=== PATIENT | male | born 1995 | race Caucasian/White ===

== ENCOUNTER 2021-04-25 10:55 | Emergency (ER) | payer OTHER ==
--- NOTE | 2021-04-25 12:15 | EDM.PDOC ---
ED HPI GENERAL MEDICAL PROBLEM - General Chief Complaint: Laceration Stated Complaint: CUT HAND Time Seen by Provider: 04/25/21 11:02 Source of Information: Reports: Patient History Limitations: Reports: No Limitations - History of Present Illness INITIAL COMMENTS - FREE TEXT/NARRATIVE: HISTORY AND PHYSICAL: History of present illness: Patient is a 25-year-old male resents emergency room today with concern of right hand laceration that occurred just prior to arrival to the emergency room. 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 Patient states that he is up-to-date on his tetanus vaccine within 5 years. Patient states he is fully able to move the hand without difficulty. Patient denies any other symptoms or concerns. Patient denies fever, chills, chest pain, shortness of breath, or cough. Denies headache, neck stiff ness, change in vision, syncope, or near syncope. Denies nausea, vomiting, abdominal pain, diarrhea, constipation, or dysuria. Has not noted any blood in urine or stool. Patient has been eating and drinking appropriately. Review of systems: As per history of present illness and below otherwise all systems reviewed and negative. Past medical history: As per history of present illness and as reviewed below otherwise noncontributory. Surgical history: As per history of present illness and as reviewed below otherwise noncontributory. Social history: See social history for further information Family history: As per history of present illness and as reviewed below otherwise noncont ributory. Physical exam: General: Patient is alert, oriented, and in no acute distress. Patient sitting comfortably on exam table. Vitals stable and reviewed by me. HEENT: Atraumatic, normocephalic, pupils equal and reactive bilaterally, negative for conjunctival pallor or scleral icterus, mucous membranes moist, TMs normal bilaterally, throat clear, neck supple, nontender, trachea midline. No d rooling or trismus noted. No meningeal signs. No hot potato voice noted. Lungs: Clear to auscultation, breath sounds equal bilaterally, chest nontender. Heart: S1S2, regular rate and rhythm without overt murmur Abdomen: Soft, nondistended, nontender. Negative for masses or hepatosplenomegaly. Negative for costovertebral tenderness. Pelvis: Stable nontender. Genitourinary: Deferred. Rectal: Deferred. Skin: Intact, warm, dry. No lesions or rashes noted. Extremities: There is a 2 cm gaping laceration of the right hand lateral palmar aspect with hemostasis. Patient has full range of motion of the complete right upper extremity and all digits without deficit. Radial pulses grossly intact with capillary refill less than 2 seconds. Otherwise, atraumatic, negative for cords or calf pain. Neurovascular unremarkable. Neuro: Awake, alert, oriented. Cranial nerves II through XII unremarkable. Cerebellum unremarkable. Motor and sensory unremarkable throughout. Exam nonfocal. Notes: Signs and symptoms that would prompt return to the ED thoroughly discussed with patient. Discussed importance of follow-up with primary care provider. Voices understanding and is agreeable to plan of care. Denies any further questions or concerns at this time. Diagnostics: hand x-ray was offered for underlying fracture or foreign body, however, patient declines. All risk versus benefits discussed with patient expresses understanding. Therapeutics: Lidocaine, sutures Prescription: None Impression: Hand laceration, right Plan: 1. Keep the area clean and dry. Continue to monitor for signs of infection as discussed. Sutures to be removed in 7-10 days. 2. Tylenol and/or ibuprofen as directed and as needed for pain management and discomfort. 3. Please follow-up with your primary care provider as discussed. Return to the ED as needed and as discussed. Definitive disposition and diagnosis as appropriate pending reevaluation and review of above. Hand Pain Score (Numeric/FACES): 7 - Related Data Allergies Allergy/AdvReac Type Severity Reaction Status Date / Time No Known Allergies Allergy Verified 04/25/21 11:16 Home Meds: Home Meds . [No Known Home Meds] 04/25/21 [History] Social & Family History - Tobacco Use Second Hand Smoke Exposure: No - Caffeine Use Caffeine Use: Reports: None - Recreational Drug Use Recreational Drug Use: No ED ROS GENERAL - Review of Systems Review Of Systems: Comprehensive ROS is negative, except as noted in HPI. ED EXAM, SKIN/RASH Exam: See Below (see dictation) ED SKIN PROCEDURES - Laceration/Wound Repair Right Lateral Hand Appearance: Subcutaneous, Linear, Mildly Contaminated Distal NVT: Neuro & Vascular Intact, No Tendon Injury Anesthetic Type: Local Local Anesthesia - Lidocaine (Xylocaine): 1% Plain Local Anesthetic Volume: 4cc Skin Prep: Chlorhexidine (Hibiciens), Saline Saline Irrigation (cc's): 250 Exploration/Debridement/Repair: Wound Explored, In a Bloodless Field, Explored to Base, No Foreign Material Found Closed with: Sutures Lac/Wound length In cm: 2 Suture Size: 4-0 # of Sutures: 3 Suture Type: Silk, Interrupted Drain Placement: No Sterile Dressing Applied: Nurse Tetanus Status Addressed: Yes (Up-to-date) Complications: No Course - Vital Signs Last Recorded V/S: Last Vital Signs Temp 97.1 F 04/25/21 11:13 Pulse 64 04/25/21 11:13 Resp 20 04/25/21 11:13 BP 140/70 04/25/21 11:13 Pulse Ox 64 L 04/25/21 11:13 - Orders/Labs/Meds Meds: Medications Discontinued Medications Generic Name Dose Route Start Last Admin Trade Name Monroe PRN Reason Stop Dose Admin Lidocaine HCl 5 ml 04/25/21 11:27 04/25/21 11:37 Lidocaine 1% 5 Ml Sdv INJECT 04/25/21 11:28 5 ml ONETIME ONE Administration Departure - Departure Time of Disposition: 12:14 Disposition: Home, Self-Care 01 Clinical Impression: Hand laceration Qualifiers: Encounter type: initial encounter Foreign body presence: without foreign body Laterality: right Qualified Code(s): S61.411A - Laceration without foreign body of right hand, initial encounter - Discharge Information Referrals: PCP,None [Primary Care Provider] - Forms: ED Department Discharge Additional Instructions: The following information is given to patients seen in the emergency department who are being discharged to home. This information is to outline your options for follow-up care. We provide all patients seen in our emergency department with a follow-up referral. The need for follow-up, as well as the timing and circumstances, are variable depending upon the specifics of your emergency department visit. If you don't have a primary care physician on staff, we will provide you with a referral. We always advise you to contact your personal physician following an emergency department visit to inform them of the circumstance of the visit and for follow-up with them and/or the need for any referrals to a consulting specialist. The emergency department will also refer you to a specialist when appropriate. This referral assures that you have the opportunity for follow-up care with a specialist. All of these measure are taken in an effort to provide you with optimal care, which includes your follow-up. Under all circumstances we always encourage you to contact your private physician who remains a resource for coordinating your care. When calling for follow-up care, please make the office aware that this follow-up is from your recent emergency room visit. If for any reason you are refused follow-up, please contact the [facility] Emergency Department at and asked to speak to the emergency department charge nurse. [facility] [address] [place] [id number] [facility] [address] [place] [id number] 1. Keep the area clean and dry. Continue to monitor for signs of infection as discussed. Sutures to be removed in 7-10 days. 2. Tylenol and/or ibuprofen as directed and as needed for pain management and discomfort. 3. Please follow-up with your primary care provider as discussed. Return to the ED as needed and as discussed. Sepsis Event Note (ED) - Evaluation Sepsis Screening Result: No Definite Risk - Focused Exam Vital Signs: Vital Signs Temp Pulse Resp BP Pulse Ox 04/25/21 11:13 97.1 F 64 20 140/70 64 L
== END 2021-04-25 12:30 | disposition home or self-care (01) ==
LOC: MW.ED 10:55
DX: S61.411A Laceration without foreign body of right hand, initial encounter (principal); W23.0XXA Caught, crushed, jammed, or pinched between moving objects, initial encounter; Y92.89 Other specified places as the place of occurrence of the external cause; Y99.0 Civilian activity done for income or pay
CPT/HCPCS: 12001; 99283-25

== ENCOUNTER 2021-04-30 21:38 | Emergency (ER) | payer OTHER ==
--- NOTE | 2021-05-01 00:32 | EDM.PDOC ---
ED HPI GENERAL MEDICAL PROBLEM - General Chief Complaint: Laceration Stated Complaint: HAND LACERATION Time Seen by Provider: 05/01/21 00:25 - History of Present Illness INITIAL COMMENTS - FREE TEXT/NARRATIVE: 25-year-old male presents complaining of a laceration to his right hand with some purulent material that came from the hand earlier today. Patient cut his hand close to a week ago and today noticed that it was a little bit swollen and some yellow discharge came from beneath the sutures. No fevers. No new trauma Right Finger-Index Pain Score (Numeric/FACES): 4 - Related Data Allergies Allergy/AdvReac Type Severity Reaction Status Date / Time No Known Allergies Allergy Verified 04/30/21 22:18 Home Meds: Home Meds cephALEXin [Keflex] 500 mg PO QID #40 cap 05/01/21 [Rx] Past Medical History - Past Health History Medical/Surgical History: Denies Medical/Surgical History Social & Family History - Family History Family Medical History: No Pertinent Family History - Tobacco Use Tobacco Use Status *Q: Current Every Day Tobacco User Years of Tobacco use: 15 Packs/Tins Daily: 1 - Caffeine Use Caffeine Use: Reports: None - Recreational Drug Use Recreational Drug Use: No ED ROS GENERAL - Review of Systems Review Of Systems: See Below Constitutional: Denies: Fever Musculoskeletal: Reports: Hand Pain Skin: Reports: Other (Discharge from the laceration site to the right hand) Neurological: Reports: No Symptoms ED EXAM, GENERAL - Physical Exam Exam: See Below Free Text/Narrative:: CONSTITUTIONAL: well appearing in no acute distress SKIN: Palmar surface of the right hand near the thumb metacarpal area has 3 sutures placed. There is maybe some very mild swelling but no overt erythema or warmth. There is no discharge it can be expressed when pushing on the laceration. There is no purulence is expressed at this time HENT: Normocephalic, atraumatic, NECK: normal range of motion PULMONARY: normal chest rise and fall, no respiratory distress or stridor NEUROLOGIC: normal speech, moves all extremities, grossly non-focal MUSCULOSKELETAL: no gross deformities, atraumatic PSYCHIATRIC: normal mood and affect Course - Vital Signs Text/Narrative:: Abscess, infection, other Patient presents as outlined above. There is no marked erythema or discharge or fluctuance at the moment. Nonetheless since the patient has some swelling and there is some tenderness for the patient with purulence antibiotics will be given. Patient advised to have the sutures removed and have splint placed for support. Patient states he cannot do that based on work and he will have them taken out in a couple of days. The risk versus benefit of doing this was discussed including remainder of foreign body and propensity for infection. Patient be sent home on Keflex with return precautions and suture to be removed as soon is able Last Recorded V/S: Last Vital Signs Temp 36.9 C 04/30/21 22:14 Pulse 66 04/30/21 23:58 Resp 18 04/30/21 23:58 BP 141/77 H 04/30/21 23:58 Pulse Ox 96 04/30/21 23:58 - Orders/Labs/Meds Meds: Medications Discontinued Medications Generic Name Dose Route Start Last Admin Trade Name Monroe PRN Reason Stop Dose Admin Cephalexin 500 mg 05/01/21 06:00 Cephalexin 500 Mg Cap PO QID JAYLA Cephalexin Confirm 05/01/21 00:40 05/01/21 00:51 Cephalexin 500 Mg Cap Administered 05/01/21 00:41 Not Given Dose 500 mg .ROUTE .STK-MED ONE Cephalexin 500 mg 05/01/21 00:47 05/01/21 00:51 Cephalexin 500 Mg Cap PO 05/01/21 00:48 500 mg ONETIME ONE Administration Departure - Departure Time of Disposition: 23:00 Disposition: Home, Self-Care 01 Condition: Good Clinical Impression: Cellulitis of hand - Discharge Information Prescriptions: cephALEXin [Keflex] 500 mg PO QID #40 cap Referrals: PCP,None [Primary Care Provider] - Forms: ED Department Discharge Additional Instructions: Return for fevers, increased redness or discharge or pain to the hand. Please have sutures removed the symptoms you are able to. Return in 2 days for reevaluation The following information is given to patients seen in the emergency department who are being discharged to home. This information is to outline your options for follow-up care. We provide all patients seen in our emergency department with a follow-up referral. The need for follow-up, as well as the timing and circumstances, are variable depending upon the specifics of your emergency department visit. If you don't have a primary care physician on staff, we will provide you with a referral. We always advise you to contact your personal physician following an emergency department visit to inform them of the circumstance of the visit and for follow-up with them and/or the need for any referrals to a consulting specialist. The emergency department will also refer you to a specialist when appropriate. This referral assures that you have the opportunity for follow-up care with a specialist. All of these measure are taken in an effort to provide you with optimal care, which includes your follow-up. Primary care clinics in the area: [facility] - Primary Care [address] [place] [address] [place] [address] Under all circumstances we always encourage you to contact your private physician who remains a resource for coordinating your care. When calling for follow-up care, please make the office aware that this follow-up is from your recent emergency room visit. If for any reason you are refused follow-up, please contact the [facility] Emergency Department at and asked to speak to the emergency department charge nurse. Sepsis Event Note (ED) - Evaluation Sepsis Screening Result: No Definite Risk - Focused Exam Vital Signs: Vital Signs Temp Pulse Resp BP Pulse Ox 04/30/21 23:58 66 18 141/77 H 96 04/30/21 22:14 36.9 C 76 18 127/78 98
[2021-05-01] MEDS ORDERED: Cephalexin 500 MG Cap ONE (00:40)
[2021-05-01] MEDS ORDERED: Cephalexin 500 MG Cap PO ONE (00:47)
[2021-05-01] MEDS ORDERED: Cephalexin 500 MG Cap PO SCH (06:00)
== END 2021-05-01 00:52 | disposition home or self-care (01) ==
LOC: MW.ED 21:38
DX: L03.113 Cellulitis of right upper limb (principal); Z72.0 Tobacco use
CPT/HCPCS: 99282; A9270